=== PATIENT | female | born 1970 | race Caucasian/White ===

== ENCOUNTER 2020-01-06 08:15 | Emergency (ER) | payer OTHER ==
[~2020-01-06] VITALS: Ht 160 cm; Wt 103.7 kg
[2020-01-06] MEDS ORDERED: ONDANSETRON ODT 4 MG PO ONE (09:00)
[2020-01-06] MEDS ORDERED: MECLIZINE CHEWABLE 25 MG TAB PO ONE (09:00)
[2020-01-06] MEDS ORDERED: ONDANSETRON ODT 4 MG ONE (09:06)
--- NOTE | 2020-01-06 09:24 | NUR ---
DIZZY, SPINNING SENSATION STARTED WHILE DRIVING INTO WORK TODAY. MEDICATED FOR SAME.
--- NOTE | 2020-01-06 10:32 | NUR ---
PT C/O RIGHT UPPER CP DEVELOPING, STATING SHE IS NOT CERTAIN IF IT IS GERD OR SOMETHING ELSE. PT STATES ROOM SPINNING FEELING HAS DECREASED BUT THAT SHE STILL HAS NAUSEA. MD MADE AWARE OF C/O CP AND EKG COMPLETED BY TECH
[2020-01-06] MEDS ORDERED: MAALOX/HYOSCYAMINE/LIDOCAINE 45 ML BTL PO ONE (11:00)
[2020-01-06] MEDS ORDERED: MAALOX/HYOSCYAMINE/LIDOCAINE 45 ML BTL ONE (11:06)
--- NOTE | 2020-01-06 11:08 | NUR ---
PROVIDED GI COCKTAIL PER ORDERS
[2020-01-06 11:35] VITALS: BP 113/68
--- NOTE | 2020-01-06 11:35 | NUR ---
PT STATES BETTER AFTER GI COCKTAIL. STATES SHE CONTINUES TO FEEL DIZZY BUT NOT SEVERE WHEN GETTING UP. D/C GIVEN AND AMBULATED TO D/C WINDOW STEADY GAIT
== END 2020-01-06 11:37 | disposition home or self-care (01) ==
LOC: ED 10:05
DX: R42 Dizziness and giddiness (principal); R11.2 Nausea with vomiting, unspecified; H93.11 Tinnitus, right ear
CPT/HCPCS: 93005; 99284; Q0162